=== PATIENT | male | born 1955 | race Caucasian/White ===

== ENCOUNTER 2020-04-26 02:39 | Emergency (ER) | payer BC, SELFPAY ==
[2020-04-26 02:51] VITALS: BP 158/89; PULSE 90; RESP 14; TEMP 36.5; O2SAT 99; BMI 21.2
--- NOTE | 2020-04-26 03:03 | HMH.EDGENADL ---
ED Disposition Clinical Impression: Inguinal hernia Qualifiers: Obstruction and gangrene presence: without obstruction or gangrene Laterality: unilateral Recurrence: recurrent Qualified Code(s): K40.91 - Unilateral inguinal hernia, without obstruction or gangrene, recurrent Disposition: Home, Self-Care Condition on Discharge: Good Referrals: PCP,No [Primary Care Provider] - (follow up with pcp and surgery team ) - Critical Care Critical Care Time: No Attestation: On 04/26/20, the high probability of a clinically significant, sudden or life threatening deterioration of the following system(s) required my full and direct attention, intervention and personal management. The time I documented below is in addition to time spent performing reported procedures but includes the following listed in this critical care notation. Medical Decision Making - Medical Records Medical records reviewed: Yes: I reviewed the patient's medical records. - Dany Inquiry Pt receiving controlled substance: No Vital Signs: 04/26/20 02:51 Temperature 97.7 F Temperature Source Oral Pulse Rate [Left] 90 Respiratory Rate 14 Blood Pressure [Left Arm] 158/89 H Blood Pressure Mean [Left Arm] 112 Blood Pressure Source [Left Arm] Automatic Cuff Blood Pressure Position [Left Arm] Sitting 02 Sat by Pulse Oximetry 99 Oxygen Delivery Method Room Air Medical Decision Narrative: 64-year-old male presenting with inguinal hernia. Patient inguinal hernia is able to be reduced completely at bedside, no concern for strangulation or incarceration. Patient has not attempted to reduce it himself, patient educated on hernias, patient will need follow-up with his primary care doctor as well as a surgical team, patient was given referral for both. Patient did not have any abdominal pain,, stable on reassessment, discharged home. General Adult HPI - General Chief complaint: PAIN Stated complaint: Hernia groin area Time Seen by Provider: 04/26/20 03:03 Mode of Arrival: Ambulatory Limitations: No Limitations Description of Symptoms (Recalled from ER Triage Doc. by RN): Pt states he has a hernia for a long time the pops out every now and then and is out again tonight. Pt has not f/u with a PCP for this. - History of Present Illness HPI narrative: 64-year-old male history of inguinal hernia presenting for inguinal hernia problem. Patient has had inguinal hernia for the past several months to years, patient states that it is come out tonight. 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 Patient has not tried to put the hernia back in, patient does not have a primary care doctor or surgeon that he has followed up with yet. Patient states that it is slightly painful. Denies any melena hematochezia, vomiting, abdominal pain. Patient requesting a work note - Related Data Home Medications Medication Instructions Recorded Confirmed No Known Home Medications 04/26/20 04/26/20 Allergies Allergy/AdvReac Type Severity Reaction Status Date / Time No Known Allergies Allergy Verified 07/13/19 11:48 [facility] History - Hepatitis A Screen Drug use history?: No High risk sexual behaviors?: No History of sexually transmitted infection?: No Currently employed?: No Childcare worker?: No Do you have indoor plumbing?: Yes Do you have electricity?: Yes Attestation statement:: This patient has been screened for Hepatitis A risk factors. I have reviewed the patient's past medical history: Yes Medical History: Reports:: Cancer (liver), Hyperlipidemia, Hypertension, Myocardial Infarction Denies:: Diabetes Mellitus Type 1, Diabetes Mellitus Type 2 Other Medical History: Reports: Other ([place]) Other Surgeries: Yes: No Previous Surgery, Cardiac Catheterization (c stent placement ), Colonoscopy Amputation: No Comment: liver biopsy - Social History Smoking Status: Current every day smoker # Packs/Day (cigarettes): 1 Alcohol Intake: never Alco
[2020-04-26 03:21] VITALS: BP 152/86; PULSE 86; RESP 16; TEMP 36.5; O2SAT 99
== END 2020-04-26 03:25 | disposition home or self-care (01) ==
PROVIDERS: Emergency Provider Emergency Medicine
DX: K40.91 Unilateral inguinal hernia, without obstruction or gangrene, recurrent (principal); K74.60 Unspecified cirrhosis of liver; I10 Essential (primary) hypertension; I25.2 Old myocardial infarction; E78.5 Hyperlipidemia, unspecified; F17.210 Nicotine dependence, cigarettes, uncomplicated; Z79.899 Other long term (current) drug therapy
CPT/HCPCS: 99281

== ENCOUNTER → 2020-05-02 11:28 | Outpatient (CLI) | payer BC, SELFPAY ==
[2020-05-02 11:55] LABS: Basophils % 0.3 % (0.1-2.0); Eosinophils # 0.1 K/mm3 (0.0-0.4); Eosinophils % 0.7 % (0.1-12.0); Hematocrit 41.6 % (42.0-52.0); Hemoglobin 13.3 g/dL (14.1-18.0); Lymphocytes # 1.1 K/mm3 (0.7-4.5); Lymphocytes % 12.3 % (10-50); Mean Corpuscular HGB Conc 31.9 g/dL (31.8-35.4); Mean Corpuscular Hemoglobin 32.6 pg (27.0-31.2); Mean Corpuscular Volume 102.1 fl (80-94); Monocytes # 0.6 K/mm3 (0.1-1.0); Monocytes % 6.2 % (1.7-9.3); Neutrophils # 7.3 K/mm3 (1.8-7.8); Neutrophils % 80.5 % (37.0-80.0); Platelet Count 157 K/mm3 (142-424); Red Blood Count 4.07 M/mm3 (4.60-6.20); Red Cell Distribution Width 13.6 % (11.5-17.5); White Blood Count 9.1 K/mm3 (4.8-10.8)
[2020-05-02 12:04] LABS: Chloride 109 mmol/L (98-107); Sodium 138 mmol/L (136-145)
[2020-05-02 12:07] LABS: Alanine Aminotransferase 50 U/L (12-78); Albumin Level 3.4 g/dl (3.5-5.0); Albumin/Globulin Ratio 0.7 (1.1-1.8); Alkaline Phosphatase 198 U/L (38-126); Aspartate Amino Transferase 100 U/L (17-59); Bilirubin,Total 2.2 mg/dl (0.2-1.3); Blood Urea Nitrogen 22 mg/dl (9-20); Calcium 9.2 mg/dl (8.4-10.2); Carbon Dioxide 22 mmol/L (22.0-30.0); Estimated Glomerular Filt Rate 61 ml/min (>60); GFR (African American) 74 ML/MIN (>60); Globulin 4.7 g/dL (1.3-3.2); Glucose 104 mg/dl (74-100); Total Protein,Serum 8.1 g/dl (6.3-8.2)
[2020-05-02 12:15] LABS: Prothrombin Time 12.1 seconds (9.4-11.8)
[2020-05-05 16:45] LABS: HCV Genotype Charge YES; Hepatitis C Genotype 1a (.)
== END ==
PROVIDERS: Visit Provider Surgery
DX: R16.0 Hepatomegaly, not elsewhere classified (principal)
CPT/HCPCS: 36415; 80053; 85025; 85610; 87522; 87902

== ENCOUNTER → 2020-05-09 10:36 | Outpatient (CLI) | payer BC, SELFPAY ==
--- NOTE | 2020-05-09 10:40 | CT_ITS ---
PROCEDURE: CT CHEST W CON CLINCAL INDICATION: lung nodules COMPARISON: CT CT ABDOMEN PELVIS WO CON from 08/12/[address] ABDOMEN PELVIS W CON from 05/09/2020 TECHNIQUE: IV Contrast: 75ml Optiray 350 Axial images obtained with sagittal and coronal reformats. All CT scans at the facility use one or more dose reduction, viz: automated exposure control, ma/kV adjustment per patient size (including targeted exams where dose is matched to indication, i.e. head), or iterative reconstruction technique. FINDINGS: There is limited clinical history available. Increased soft tissue density in the posterior mediastinum extending from the carinal region to the upper abdomen. There is thickening of the esophagus distally. Cannot separate this mass from the esophagus. There is mild dilatation of the esophagus superiorly with a small amount of contrast in the upper thoracic esophagus. Right hilar adenopathy is present measuring 2.5 cm. There are atelectatic or fibrotic changes in the right apex with nodularity in the right apex laterally at 1.8 cm. Medium-sized right pleural effusion is present with right basilar atelectasis. Trace left-sided effusion is noted. There are 2 nodules in the left lower lobe anteriorly each measuring 8 mm. The nodules are juxtaposed. No acute bony finding. No evidence of aortic aneurysm dissection or pulmonary embolus. IMPRESSION: Posterior mediastinal mass/adenopathy with right hilar adenopathy and 2 noncalcified nodules in the left lower lobe with bilateral pleural effusions right larger than left with atelectatic change in the right lower lobe and possible nodule in the right apex. These findings are consistent with neoplasm. Metastatic disease is or lymphoma is considered. The posterior mediastinal mass is inseparable from the distal esophagus. Esophageal carcinoma is also considered. Please correlate with clinical history which is not readily available at the time of the interpretation Dictated by: Aleks Hilton MD 05/10/2020 12:21 Aleks Hilton MD in [place] 05/10/2020 12:21
--- NOTE | 2020-05-09 10:40 | CT_ITS ---
PROCEDURE: CT ABDOMEN PELVIS W CON CLINICAL INDICATION: hernia eval Liver cancer, inguinal hernia COMPARISON: CT CT ABDOMEN PELVIS WO CON from 08/12/2019 TECHNIQUE: IV Contrast: 75ML OPTIRAY 350 Oral Contrast None Axial images obtained with sagittal and coronal reformats. All CT scans at the facility use one or more dose reduction, viz: automated exposure control, ma/kV adjustment per patient size (including targeted exams where dose is matched to indication, i.e. head), or iterative reconstruction technique. FINDINGS: There are multiple hepatic masses the largest in the right hepatic lobe measuring 6.4 cm. There is a large retroperitoneal mass measuring 8.6 cm AP 7.8 cm transverse and extending cephalad caudad from the lower chest to the aortic bifurcation. This mass has occluded the inferior vena cava superior to the level of the renal veins with enlargement of the inferior vena cava and iliac veins. The mass extends into the portal hepatis region encasing the celiac artery and a [place] artery and proximal aspect of the SMA as well as the renal arteries on both sides. There is irregular enhancement of the gallbladder wall with thickening of the gallbladder wall. There is a moderate amount of ascites. No obvious adrenal mass. The spleen has an unremarkable appearance. The mass extends to the posterior aspect of the head of the pancreas and could even be pancreatic in origin a. There is a moderate amount of ascites in the pelvis. There is a large right hydrocele with a small right inguinal hernia. There is mild right hydronephrosis and hydroureter. The prostate gland and seminal vesicles are enlarged. The bowel gas pattern is nonspecific. There is narrowing of the proximal aspect of the sigmoid colon and the mid aspect of the sigmoid colon No bony destructive process. IMPRESSION: There is a large retroperitoneal mass present as described above with extension into the portal hepatis region encasing the celiac and superior mesenteric artery and renal arteries. This is causing obstruction of the inferior vena cava. The mass extends to the posterior aspect of the head of the pancreas. Cannot exclude pancreatic involvement. This is consistent with neoplasm. There are numerous hepatic metastasis which have increased compared to the previous exam. There is also nodular thickening of the gallbladder suspicious for neoplasm. There is right hydronephrosis and hydroureter There is diffuse ascites. Large right hydrocele. Small right inguinal hernia Dictated by: Aleks Hilton MD 05/10/2020 12:48 Aleks Hilton MD in [facility] 05/10/2020 12:48
== END ==
PROVIDERS: PCP Nurse Practitioner Family; Visit Provider Surgery
DX: R10.9 Unspecified abdominal pain (principal); K40.90 Unilateral inguinal hernia, without obstruction or gangrene, not specified as recurrent; R22.2 Localized swelling, mass and lump, trunk
CPT/HCPCS: 71260; 74177; Q9967